=== PATIENT | female | born 1980 | race Caucasian/White ===

== ENCOUNTER 2017-01-03 11:32 | Emergency (ER) | payer MEDICAID ==
[~2017-01-03] VITALS: Ht 157.5 cm; Wt 97.0 kg
[~2017-01-03 11:32] MED LIST: HYDR-3498 PO; IBUP-1542 PO; IBUP800T25 PO; TAMS-14 PO
[2017-01-03 11:34] VITALS: Ht 157.5 cm; Wt 97.0 kg
[2017-01-03] MEDS ORDERED: KETOROLAC 60 MG INJ IM STA (12:51)
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
[2017-01-03] MEDS ORDERED: NAPR-260 PO (14:34)
[2017-01-03 14:53] VITALS: BP 128/78; PULSE 66; RESP 18
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
== END 2017-01-03 14:54 | disposition home or self-care (01) ==
LOC: FTE 11:32
DX: S19.9XXA Unspecified injury of neck, initial encounter (principal); S49.91XA Unspecified injury of right shoulder and upper arm, initial encounter; S29.001A Unspecified injury of muscle and tendon of front wall of thorax, initial encounter; V49.40XA Driver injured in collision with unspecified motor vehicles in traffic accident, initial encounter
CPT/HCPCS: 71100; 72020; 73030; 96372; J1885; Z7502

== ENCOUNTER 2017-06-16 19:40 | Emergency (ER) | payer MEDICAID ==
[~2017-06-16] VITALS: Ht 165.1 cm; Wt 100.0 kg
[~2017-06-16 19:40] MED LIST changes: +NAPR-260 PO
[2017-06-16 19:43] VITALS: Ht 165.1 cm; Wt 100.0 kg
[2017-06-16] MEDS ORDERED: morphine 4 MG/ML VIAL IV STA (20:10)
[2017-06-16] MEDS ORDERED: SOD CHLORIDE 0.9% 1,000 ML IV STA (20:10)
[2017-06-16] MEDS ORDERED: ONDANSETRON 4 MG INJ IV STA (20:10)
--- NOTE | 2017-06-16 20:31 | ERD ---
ER Documentation Chief Complaint Date/Time DATE: 06/16/17 TIME: 20:26 Chief Complaint alexander for 3 days vomiting today with light and sound sensitivity HPI Patient is a 37 year old female with a past medical history of meningitis, migraines who presents to the ED with headache, neck pain and vomiting 3 days. She states that she has a history of migraines and this pain is similar to what she has experienced in the past. She states she has neck pain and back pain. She also complains of photophobia and phonophobia. Does not have an appetite. Denies recent URIs. Denies cough or congestion, runny nose. Denies abdominal pain, diarrhea or constipation. Denies seizures or rashes. Denies trauma. ROS All systems reviewed and are negative except as per history of present illness. Medications Home Meds Active Scripts Amoxicillin/Potassium Clav (Amox-Clav 875-125 mg Tablet) 875-125 mg Tab, 1 TAB PO BID for 10 Days, #20 TAB Prov:THEA MARIN NP 06/19/17 Royjniiotfltk-Mhqkjbltyp-Bedjabvi-Codeine* (Fioricet w/ Codeine*) [id number]- 30MG Capsule, 1 CAP PO Q6H Y for PAIN LEVEL 1-5, #20 CAP Prov:THEA MARIN NP 06/19/17 Nitrofurantoin Monohyd Macrocr* (Macrobid*) 100 Mg Capsr, 100 MG PO BID for 7 Days, CAP Prov:JOHN MORALES PA-C 06/16/17 Hydrocodone/Acetaminophen ([place] 5-325 Tablet) 1 Each Tablet, 1 TAB PO Q6H Y for PAIN, #7 TAB Prov:JOHN MORALES PA-C 06/16/17 Ondansetron (Ondansetron Odt) 4 Mg Tab.rapdis, 4 MG PO Q6H Y for NAUSEA AND/OR VOMITING, #10 TAB Prov:JOHN MORALES PA-C 06/16/17 Naproxen* (Naprosyn*) 500 Mg Tablet, 500 MG PO BID Y for PAIN AND/OR INFLAMMATION, #30 TAB Prov:MIGUEL ANGEL HUFF PA-C 01/03/17 Ibuprofen* (Motrin*) 600 Mg Tab, 600 MG PO Q8, #30 Prov:KAVITA RODRIGUEZ Keri 07/23/15 Ibuprofen* (Motrin*) 800 Mg Tab, 800 MG PO Q6, #20 TAB Prov:AIDE DICKSON MD 04/18/15 Tamsulosin Hcl* (Flomax*) 0.4 Mg Cap.er.24h, 0.4 MG PO BID, #30 CAP Prov:AIDE DICKSON MD 04/18/15 Hydrocodone Bit-Acetaminophen* ([place]*) 5-325 Mg Tab, 1 TAB PO Q6 Y for PAIN, # 20 TAB Prov:AIDE DICKSON MD 04/18/15 Allergies Allergies: Coded Allergies: No Known Allergies (Verified Allergy, Mild, 01/04/17) PMhx/Soc History of Surgery: Yes (tubal ligation) Anesthesia Reaction: No Hx Neurological Disorder: Yes (ALEXANDER) Hx Respiratory Disorders: No Hx Cardiac Disorders: No Hx Psychiatric Problems: No Hx Miscellaneous Medical Probl: No Hx Alcohol Use: No Hx Substance Use: No Hx Tobacco Use: No FmHx Family History: No coronary disease, No diabetes, No other Physical Exam Vitals Vital Signs Date Time Temp Pulse Resp B/P Pulse Ox O2 Delivery O2 Flow Rate FiO2 06/16/17 23:57 98.7 84 17 124/60 96 Room Air 06/16/17 19:43 100.6 90 20 130/85 99 Physical Exam GENERAL: Well-developed, well-nourished female. Appears in no acute distress. HEAD: Normocephalic, atraumatic. EYES: Pupils are equally reactive bilaterally. EOMs grossly intact. No conjunctival erythema. ENT: Moist mucous membranes. No uvula deviation. No kissing tonsils. No exudates. NECK: Supple. No lymphadenopathy or thyromegaly. No meningismus. negative kernig. negative brudinski. no jolt accentuation. LUNG: Clear to auscultation bilaterally. No rhonchi, wheezing, rales or coarse breath sounds. HEART: Regular rate and rhythm. No murmurs, rubs or gallops. BACK: No midline tenderness. Extremities: Equal pulses bilaterally. No peripheral clubbing, cyanosis or edema. No unilateral leg swelling. NEUROLOGIC: Alert and oriented. Moving all four extremities. 5/5 strength in all extremities. Normal speech. Steady gait. CN 2-12 intact. no ataxia, negative romberg test. SKIN: Normal color. Warm and dry. No rashes or lesions. Capillary refill < 2 seconds Result Diagram: 06/16/17202906/16/172029 Results 24 hrs Laboratory Tests Test 06/16/17 20:30 06/16/17 20:57 White Blood Count 11.910^3/ul Red Blood Count 4.7810^6/ul Hemoglobin 13.4g/dl Hematocrit 40.0% Mean Corpuscular Volume 83.7fl Mean Corpuscular Hemoglobin 28.0pg Mean Corpuscular Hemoglobin Concent 33.5g/dl Red Cell Distribution Width 12.9% Platelet Count 40562^3/UL Mean Platelet Volume 9.2fl Neutrophils % 76.1% Lymphocytes % 17.1% Monocytes % 5.3% Eosinophils % 0.4% Basophils % 0.5% Nucleated Red Blood Cells % 0.0/100WBC Neutrophils # 9.110^3/ul Lymphocytes # 2.010^3/ul Monocytes # 0.610^3/ul Eosinophils # 0.110^3/ul Basophils # 0.110^3/ul Nucleated Red Blood Cells # 0.010^3/ul Prothrombin Time 13.4Sec Prothrombin Time Ratio 1.0 INR International Normalized Ratio 1.02 Activated Partial Thromboplast Time 27.2Sec Sodium Level 140mmol/L Potassium Level 3.7mmol/L Chloride Level 103mmol/L Carbon Dioxide Level 25mmol/L Anion Gap 16 Blood Urea Nitrogen 11mg/dl Creatinine 0.62mg/dl Glucose Level 111mg/dl Calcium Level 9.3mg/dl Urine Color YELLOW Urine Clarity CLOUDY Urine pH 7.0 Urine Specific [place] 1.018 Urine Ketones NEGATIVEmg/dL Urine Nitrite NEGATIVEmg/dL Urine Bilirubin NEGATIVEmg/dL Urine Urobilinogen NEGATIVEmg/dL Urine Leukocyte Esterase TRACELeu/ul Urine Microscopic RBC 3/HPF Urine Microscopic WBC 3/HPF Urine Squamous Epithelial Cells MANY/HPF Urine Amorphous Crystals FEW/HPF Urine Bacteria FEW/HPF Urine Mucus FEW/HPF Urine Hemoglobin NEGATIVEmg/dL Urine Glucose NEGATIVEmg/dL Urine Total Protein 1+mg/dl Current Medications Medications (Trade) Dose Ordered Sig/[place] Route PRN Reason Start Time Stop Time Status Last Admin Dose Admin Sodium Chloride (NS) 1,000 ml @ 1,000 mls/hr Q1H STAT IV 06/16/17 20:10 06/16/17 21:09 DC 06/16/17 20:33 Ondansetron HCl (Zofran Inj) 4 mg ONCE STAT IV 06/16/17 20:10 06/16/17 20:12 DC 06/16/17 20:33 Morphine Sulfate (morphine) 4 mg ONCE STAT IV 06/16/17 20:10 06/16/17 20:12 DC 06/16/17 20:33 Ketorolac Tromethamine (Toradol) 30 mg ONCE STAT IV 06/16/17 22:05 06/16/17 22:06 DC 06/16/17 22:11 Procedures/MDM ER COURSE: I kept the patient and/or family informed of laboratory and diagnostic imaging results throughout the emergency room course. EKG, MONITORS, & DIAGNOSTIC IMAGING: [place] [id number] Radiology Main Line: [phone] DIAGNOSTIC IMAGING REPORT Patient: TINO WALLIS : 1980 Age: 37 Sex: F MR #: [id number] DOS: 06/16/172009 Ordering MD: JOHN MORALES PA-C Location: [facility] Room/Bed: PROCEDURE: CT HEAD WITHOUT CONTRAST: CLINICAL INDICATION: 37 years of age female, headache . COMPARISON: None TECHNIQUE: CT of the head was performed without IV contrast. Dose information: The estimated radiation dose (CTDIvol mGy) for each series in this exam is 44 . The estimated cumulative dose (DLP mGy-cm) is 720 . FINDINGS: Parenchyma: Negative for evidence of acute intracranial hemorrhage, mass effect or large territory infarct. 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 Ventricles and extra-axial spaces: Appropriate for age. Visualized paranasal sinuses: Mild mucosal thickening right ethmoid air cells. Mastoid air cells: Clear. Bones: No focal abnormality. Additional comment: None. IMPRESSION: Coarse calcification right inferior frontal lobe likely from remote infection. Mild mucosal thickening ethmoid air cells. No other acute abnormality is identified. RPTAT: HCTS Physician Dawn Date Time Electronically viewed and signed by Physician Dawn on 06/16/2017 21: 37 CS/ CC: JOHN MORALES PA-C MEDICATIONS: Morphine, Zofran, Toradol. Tolerated well had improvement in symptoms. No adverse reaction. LAB INTERPRETATION: CBC showed no evidence of systemic infection or severe anemia. CMP showed no evidence of electrolyte abnormalities, severe acidosis, alkalosis, renal failure , or liver disease. Lipase showed no evidence of acute pancreatitis. UA showed trace leukocytes with no nitrites. Urine test was negative. MEDICAL DECISION MAKING: This is a 37 year old female who presents with headache, nausea, vomiting, fever x 3 days. Vital signs were reviewed. Temperature of 100.6 in the ED. Patient is not hypoxic. Patient given tylenol in the ED, tTemperature is downtrending. I consulted with my supervising physician Dr Dill who agrees with my medical decision making and discharge plans. Patient describes headache as similar to her chronic history of migraines. Her WBC is slightly elevated which is likely due to pain and stress reaction. Her CMP and lipase were within normal limits. Her urine shows early cystitis. Patient was able to move her neck in all directions. AFter administration of morphine and zofran, patient pain had improved and described it as a 7/10. After administration of toradol, patient had improvement in pain and stated that she felt much better and was ready to be dsicharged home. Neuro exam was repeated after medication and within normal limits. Patient had negative kernig, negative brudinski and no jolt accentuation, therefore low suspicion for meningitis. Her CT scan was within normal limits as well. Low suspicion for intracranial hemorrhage, meningitis, intracranial mass, concussion, temporal arteritis, stroke, elevated intracranial pressure, seizure. DISCHARGE: At this time, patient is stable for discharge and outpatient management with no new complaints during the ER course. Patient was sent home with macrobid, norco and zofran Patient advised to follow up with neurologist for management of her headaches. Patient will be discharged home with instructions to recheck for new or worsening symptoms such as fever, nausea, weakness, LOC and to follow up with primary care in the next 1-2 days. Patient was advised to return to the ER for any new or worsening symptoms. Plan was discussed and patient and/or family understands and agrees. Home instructions were given. Departure Diagnosis: Primary Impression: Headache Headache type: unspecified Headache chronicity pattern: acute headache Intractability: not intractable Qualified Code: R51 - Acute nonintractable headache, unspecified headache type Condition: Stable JOHN MORALES PA-C Jun 16, 2017 20:30 JOHN MORALES PA-C Jun 16, 2017 20:30
[2017-06-16 21:03] LABS: BASOPHIL # 0.1 10^3/ul (0.0-0.1); BASOPHILS % 0.5 % (0.0-2.0); EOSINOPHILS # 0.1 10^3/ul (0.0-0.5); EOSINOPHILS % 0.4 % (0.0-7.0); HEMOGLOBIN 13.4 g/dl (12.0-16.0); LYMPHOCYTES % 17.1 % (15.0-51.0); MEAN CORPUSCULAR HGB CONC 33.5 g/dl (32.0-37.0); MEAN CORPUSCULAR VOLUME 83.7 fl (82.0-101.0); MEAN PLATELET VOLUME 9.2 fl (7.4-10.4); MONOCYTE # 0.6 10^3/ul (0.3-0.9); MONOCYTES % 5.3 % (0.0-11.0); NEUTROPHIL # 9.1 10^3/ul (1.6-7.5); NEUTROPHILS % 76.1 % (39.0-77.0); PLATELET COUNT 307 10^3/UL (140-415); RED BLOOD COUNT 4.78 10^6/ul (4.20-5.40); RED CELL DISTRIBUTION WIDTH 12.9 % (11.5-14.5); WHITE BLOOD COUNT 11.9 10^3/ul (4.8-10.8)
[2017-06-16 21:12] LABS: ADD UMIC YES; UR AMORPHOUS CRYSTAL FEW /HPF (NONE SEEN); UR ASCORBIC ACID NEGATIVE (NEGATIVE); UR BACTERIA FEW /HPF (NONE SEEN); UR BILIRUBIN (Dip) NEGATIVE (NEGATIVE); UR BLOOD (Dip) NEGATIVE (NEGATIVE); UR CLARITY CLOUDY (CLEAR); UR COLOR YELLOW (YELLOW); UR GLUCOSE (Dip) NEGATIVE (NEGATIVE); UR KETONES (Dip) NEGATIVE (NEGATIVE); UR LEUKOCYTE ESTERASE (Dip) TRACE Leu/ul (NEGATIVE); UR MUCUS FEW /HPF (NONE SEEN); UR NITRITE (Dip) NEGATIVE (NEGATIVE); UR RBC 3 /HPF (0-5); UR SPECIFIC GRAVITY (Dip) 1.018 (1.003-1.030); UR SQUAMOUS EPITHELIAL CELL MANY /HPF (FEW); UR TOTAL PROTEIN (Dip) 1+ mg/dl (NEGATIVE); UR UROBILINOGEN (Dip) NEGATIVE (NEGATIVE)
[2017-06-16 21:17] LABS: INR 1.02; PROTIME 13.4 Sec (12.2-14.2)
[2017-06-16 21:18] LABS: PARTIAL THROMBOPLASTIN TIME 27.2 Sec (25.0-35.0)
[2017-06-16 21:26] LABS: CALCIUM 9.3 mg/dl (8.4-10.2); CREATININE 0.62 mg/dl (0.44-1.00); POTASSIUM 3.7 mmol/L (3.5-5.1)
--- NOTE | 2017-06-16 21:37 | RADRPT ---
PROCEDURE: CT HEAD WITHOUT CONTRAST: CLINICAL INDICATION: 37 years of age female, headache . COMPARISON: None TECHNIQUE: CT of the head was performed without IV contrast. Dose information: The estimated radiation dose (CTDIvol mGy) for each series in this exam is 44 . The estimated cumulative dose (DLP mGy-cm) is 720 . FINDINGS: Parenchyma: Negative for evidence of acute intracranial hemorrhage, mass effect or large territory i nfarct. 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 Ventricles and extra-axial spaces: Appropriate for age. Visualized paranasal sinuses: Mild mucosal thickening right ethmoid air cells. Mastoid air cells: Clear. Bones: No focal abnormality. Additional comment: None. IMPRESSION: Coarse calcification right inferior frontal lobe likely from remote infection. Mild mucosal thickening ethmoid air cells. No other acute abnormality is identified. RPTAT: HCTS Physician Dawn Date Time Electronically viewed and signed by Julia Neri Physician on 06/16/2017 21:37 /
[2017-06-16] MEDS ORDERED: KETOROLAC 30 MG INJ IV STA (22:05)
[2017-06-16] MEDS ORDERED: HYDR-906 PO (23:10)
[2017-06-16] MEDS ORDERED: ONDA4TAB14 PO (23:10)
[2017-06-16] MEDS ORDERED: NITR-58 PO (23:11)
[2017-06-16 23:57] VITALS: BP 124/60; PULSE 84; RESP 17; TEMP 98.7
[2017-06-19] MEDS ORDERED: BUTA1CAP39 PO (01:55)
[2017-06-19] MEDS ORDERED: AMOX1TAB10 PO (01:55)
== END 2017-06-16 23:57 | disposition home or self-care (01) ==
LOC: FTE 19:40
DX: R51 Headache (principal); R11.10 Vomiting, unspecified
CPT/HCPCS: 36415; 70450; 80048; 81001; 85025; 85610; 85730; 96374; 96375; J1885; J2270; J2405; J7030; Z7502

== ENCOUNTER 2017-11-03 21:07 | Emergency (ER) | END 2017-11-04 03:21 | disposition home or self-care (01) ==